=== PATIENT | female | born 1955 | race Caucasian/White ===

== ENCOUNTER → 2018-04-20 | Outpatient (CLI) | payer OTHER ==
[2018-04-22 15:08] LABS: HPV 16 Negative (Negative); HPV 18 Negative (Negative); HPV OTHER HR TYPES Negative (Negative)
== END ==
LOC: LAB 13:50 → LAB SHORT 13:50
PROVIDERS: Nurse Practitioner Family
DX: Z12.4 Encounter for screening for malignant neoplasm of cervix (principal)
CPT/HCPCS: 87624; G0145

== ENCOUNTER 2019-01-02 11:40 | Day surgery (SDC) | payer OTHER ==
[~2019-01-02] VITALS: Ht 175.3 cm; Wt 56.0 kg
[2019-01-02] MEDS ORDERED: SUMA25 (12:56)
== END 2019-01-02 14:52 | disposition home or self-care (01) ==
LOC: ORSCSDS 11:40
PROVIDERS: Student in an Organized Health Care Education/Training Program
PROC: 0DJD8ZZ Inspection of Lower Intestinal Tract, Via Natural or Artificial Opening Endoscopic (ICD-10-PCS; principal; 2019-01-02 13:00)
DX: Z12.11 Encounter for screening for malignant neoplasm of colon (principal); Z86.010 Personal history of colon polyps; K64.8 Other hemorrhoids; K62.89 Other specified diseases of anus and rectum; Z79.899 Other long term (current) drug therapy
CPT/HCPCS: J2704; J7120

== ENCOUNTER → 2019-08-29 | Outpatient (CLI) | payer OTHER ==
[~2019-08-29] MED LIST: SUMA25
[2019-08-30 05:47] LABS: Stool Occult Bld Immuno 1 Negative (NEGATIVE)
== END ==
LOC: LAB SHORT 07:30 → LAB 07:30
PROVIDERS: Family Medicine
DX: Z12.11 Encounter for screening for malignant neoplasm of colon (principal)
CPT/HCPCS: G0328

== ENCOUNTER 2022-08-28 10:18 | Emergency (ER) | payer OTHER ==
[~2022-08-28] VITALS: Ht 144.8 cm; Wt 56.7 kg
[2022-08-28] MEDS ORDERED: CELE100 PO (10:58)
== END 2022-08-28 11:03 | disposition home or self-care (01) ==
LOC: ER 10:18
DX: M25.561 Pain in right knee (principal); Z79.899 Other long term (current) drug therapy
CPT/HCPCS: 73562-RT

== ENCOUNTER → 2022-09-16 | Outpatient (CLI) | payer OTHER ==
[~2022-09-16] MED LIST changes: +CELE100 PO
[2022-09-16 13:26] LABS: Adenovirus F 40/41 Not Detected (NOT DETECT); Astrovirus Not Detected (NOT DETECT); Campylobacter Sp Not Detected (NOT DETECT); Cryptosporidium Not Detected (NOT DETECT); Cyclospora Cayetanensis Not Detected (NOT DETECT); E. Coli O157 Not Detected (NOT DETECT); Entamoeba Histolytica Not Detected (NOT DETECT); Enteroaggregative E. coli-EAEC Not Detected (NOT DETECT); Enteropathogenic E. coli-EPEC Not Detected (NOT DETECT); Enterotoxigenic E. coli-ETEC Not Detected (NOT DETECT); Giardia Lamblia Not Detected (NOT DETECT); Plesiomonas Shigelloides Not Detected (NOT DETECT); Salmonella Sp Not Detected (NOT DETECT); Shiga Toxin-prod E. coli-STEC Not Detected (NOT DETECT); Shigella/Enteroin E. coli-EIEC Not Detected (NOT DETECT); Vibrio Cholerae Not Detected (NOT DETECT); Vibrio Sp Not Detected (NOT DETECT); Yersinia Enterocolitica Not Detected (NOT DETECT)
[2022-09-16 13:27] LABS: Norovirus GI/GII Not Detected (NOT DETECT); Rotavirus A Not Detected (NOT DETECT); Sapovirus Not Detected (NOT DETECT)
== END | disposition home or self-care (01) ==
LOC: LAB SHORT 06:28
PROVIDERS: Family Medicine
DX: R19.7 Diarrhea, unspecified (principal)
CPT/HCPCS: 87507

== ENCOUNTER 2024-12-12 05:59 | Day surgery (SDC) | payer OTHER ==
[~2024-12-12] VITALS: Ht 172.7 cm; Wt 54.2 kg
[2024-12-12] VITALS (13 sets, daily range): BP systolic 109–144; BP diastolic 52–87
[~2024-12-12 05:59] MED LIST changes: +CALCIUM CIT 311 EAC7 PO; +Children's Che1 EAC1 PO; +MERIBIN5 MG PO; -SUMA25; +SUMA25 PO
[2024-12-12] MEDS ORDERED: Acetaminophen 500 MG Tab PO SCH ×2 (07:40→16:00)
[2024-12-12] MEDS ORDERED: CeFAZolin Sodium 2,000 MG in NS 100 ML IV SCH ×3 (07:40→18:30)
[2024-12-12] MEDS ORDERED: Lactated Ringer's 1,000 ML IV SCH ×2 (07:40→13:00)
[2024-12-12] MEDS ORDERED: Tranexamic Acid 100 ML IV SCH (07:40)
[2024-12-12] MEDS ORDERED: OxyCODONE HCL 10 MG TABCR PO SCH (07:40)
[2024-12-12] MEDS ORDERED: Chlorhexidine Mouth Care 15 ML UDC MT SCH (07:40)
[2024-12-12] MEDS ORDERED: Ropivacaine 0.5% HCl/Pf 123.125 MG,EPINEPHrine HCL 0.25 MG,Ketorolac Tromethamine 15 MG... INFIL SCH (07:40)
[2024-12-12] MEDS ORDERED: Midazolam HCl 1MG / ML 2ML Vial ONE (09:52)
[2024-12-12] MEDS ORDERED: propofoL 20 ML IV ONE (09:52)
[2024-12-12] MEDS ORDERED: FentaNYL Citrate 50 MCG/ML 2 ML Injection ONE (09:52)
[2024-12-12] MEDS ORDERED: Ondansetron HCl 2 MG / ML 2ML Vial ONE (10:14)
[2024-12-12] MEDS ORDERED: Ketorolac Tromethamine 30mg Vial ONE (10:14)
[2024-12-12] MEDS ORDERED: Dexamethasone Sod Phos 10 MG/ML 1ML VIAL ONE (10:14)
[2024-12-12] MEDS ORDERED: HYDROmorphone HCl/Pf 1MG SYR IV PRN ×3 (13:00→14:40)
[2024-12-12] MEDS ORDERED: Metoclopramide HCl 5MG / ML 2ML Vial IV PRN (13:00)
[2024-12-12] MEDS ORDERED: DiphenhydrAMINE HCL 25 MG Cap PO PRN (13:00)
[2024-12-12] MEDS ORDERED: Promethazine HCl 25 MG Tab PO PRN (13:00)
[2024-12-12] MEDS ORDERED: Ondansetron HCl 2 MG / ML 2ML Vial IV PRN ×2 (13:00→14:40)
[2024-12-12] MEDS ORDERED: OxyCODONE HCL 5 MG TAB PO PRN ×2 (13:00)
--- NOTE | 2024-12-12 13:25 | NUR ---
ARRIVAL TO SURGICAL UNIT PT ARRIVED TO SURGICAL UNIT VIA HOSP BED. PAIN CONTROLLED WELL. INSICION SITE WNL. AQUACEL TO L KNEE, NO DRAINAGE NOTED. PPP, ABLE TO WIGGLE TOES. HRR, LUNGS CLEAR. SNACKS AND DRINKS GIVEN.
[2024-12-12] MEDS ORDERED: Albuterol 2.5 MG/3 ML VIAL INH PRN (14:35)
[2024-12-12] MEDS ORDERED: ePHEDrine Sulfate 50 MG/ML 1ML Injection IV PRN (14:35)
[2024-12-12] MEDS ORDERED: FentaNYL Citrate 50 MCG/ML 2 ML Injection IV PRN ×2 (14:35)
[2024-12-12] MEDS ORDERED: Atropine Sulfate 0.1 MG/ML 10ML SYR IV PRN (14:35)
[2024-12-12] MEDS ORDERED: Droperidol 5 mg/2 ml Vial IV PRN (14:35)
[2024-12-12] MEDS ORDERED: HydrALAZINE HCl 20 MG / ML 1ML Vial IV PRN (14:40)
[2024-12-12] MEDS ORDERED: Labetalol HCL 5 MG/ML 4ML Injection (Single Dose) IV PRN (14:40)
[2024-12-12] MEDS ORDERED: ASPI81CH PO (17:03)
--- NOTE | 2024-12-12 17:41 | NUR ---
DISCHARGE SUMMARY PT TOLERATING FOOD AND LIQUIDS WELL. PAIN MANAGED WELL. VOIDED SUCCESSFULLY. AMBULATED IN HALLWAY AND UP STAIRS. INCISION SITE WNL, AQUACEL AND TONY BANDAGE ON, NO DRAINAGE. PT COMFORTABLE W/ AMBULATION FOR HOME. DISCHARGE EDUCATION DISCUSSED AND GIVEN. ESCORTED OUT VIA WC.
[2024-12-12] MEDS ORDERED: Ketorolac Tromethamine 15mg Vial IV SCH (18:00)
[2024-12-12] MEDS ORDERED: Docusate Sodium 100 MG Cap PO SCH (21:00)
[2024-12-13] MEDS ORDERED: Aspirin 81 MG TabEC PO SCH (08:00)
[2024-12-13] MEDS ORDERED: Apixaban 5 MG Tab PO SCH (09:00)
== END 2024-12-12 17:50 | disposition home or self-care (01) ==
LOC: ORSCMMR 05:59 → ORD 09:15 → ORSCMMR 09:15 → ORD 10:15 → SURS 12:54 → ORSCMMR 12:54 → SURS 17:50
PROVIDERS: Orthopaedic Surgery
PROC: 0SRD0J9 Replacement of Left Knee Joint with Synthetic Substitute, Cemented, Open Approach (ICD-10-PCS; principal; 2024-12-12 09:15)
PROC: 0QP104Z Removal of Internal Fixation Device from Sacrum, Open Approach (ICD-10-PCS; principal; 2024-12-12 09:15)
DX: M17.12 Unilateral primary osteoarthritis, left knee (principal); Z79.899 Other long term (current) drug therapy
CPT/HCPCS: 73560-LT; A9270; C1713; C1776; J0171; J0690; J0735; J1100; J1885; J2250; J2405; J2704; J2765; J2795; J3010; J7120